=== PATIENT | male | born 1950 ===

== ENCOUNTER 2016-11-15 06:26 | Day surgery (SDC) | payer MEDICARE ==
[2016-11-15 07:15] VITALS: BMI 27.8
[2016-11-15] MEDS ORDERED: Propofol 10 mg/ml Inj (20 ML) ONE (07:51)
[2016-11-15] MEDS ORDERED: Lactated Ringer's 500 ML IV ONE (07:54)
[2016-11-15] MEDS ORDERED: Lidocaine Hydrochloride 5 ML INJ ONE (07:55)
[2016-11-15] MEDS ORDERED: Lactated Ringer's 500 ML IV SCH (08:00)
[2016-11-15 08:47] VITALS: O2SAT 100
[2016-11-15 09:02] VITALS: RESP 12
[2016-11-15 09:38] VITALS: BP 119/72; PULSE 59; TEMP 97.8
== END 2016-11-15 09:35 | disposition home or self-care (01) ==
LOC: C.ENDO 06:26
PROVIDERS: ATTEND Internal Medicine Gastroenterology
DX: D12.2 Benign neoplasm of ascending colon (principal); D12.5 Benign neoplasm of sigmoid colon; K57.90 Diverticulosis of intestine, part unspecified, without perforation or abscess without bleeding; K64.8 Other hemorrhoids
CPT/HCPCS: 45388; 88305; J2704; J3010; J7120